=== PATIENT | female | born 1955 | race Asian ===

== ENCOUNTER 2020-03-05 15:11 | Emergency (ER) | payer MEDICARE, MEDICAID ==
[~2020-03-05] VITALS: Ht 165.1 cm; Wt 79.4 kg
[~2020-03-05 15:11] MED LIST: ASPIR 8181 MG ORAL; ATORVASTATIN CA10 MG ORAL; CATAPRES0.1 MG ORAL; COREG25 MG ORAL; COZAAR50 MG ORAL; DIPHENHYDRAMINE25 M1 ORAL; HYDRALAZINE HCL50 MG ORAL; ISOSORBIDE DINI30 MG ORAL; LAMICTAL25 MG ORAL; LEVEMIR FL100 UNIT/1 SUBQ; LEVEMIR100 UNIT/1 SUBQ; NOVOLOG100 UNIT/3 SUBQ; NOVOLOG100 UNITS1 SUBQ; RESTORIL15 MG ORAL; SEROQUEL200 MG ORAL; TOPAMAX25 MG ORAL; TRADJENTA5 MG PO
[2020-03-05 15:29] VITALS: BP 152/72
--- NOTE | 2020-03-05 15:30 | NUR ---
ED Nurse Note: Pt was brought in by [facility] from [facility] d/t R lower leg swelling and pain that has been going on for 2 months and recently had worsen today. Pt is AOx2-3, able to answer simple questions and verbalize her needs, pt denies any pain as of now. Pt's a Full Code. Per EMS, pt used to be AOx4 and regularly ambulates with minimum assistance. Pt denies any recent trauma nor injury. Pt was placed on bed, side rails up for safety; bed on lowest position.
--- NOTE | 2020-03-05 15:36 | NUR ---
ED Nurse Note: ERMD at bedside.
[2020-03-05] MEDS ORDERED: Acetaminophen 500mg (ES) tab ORAL ONE (15:45)
--- NOTE | 2020-03-05 15:45 | NUR ---
ED Nurse Note: x-ray at bedside.
--- NOTE | 2020-03-05 15:54 | NUR ---
ED Nurse Note: US tech at bedside.
--- NOTE | 2020-03-05 16:21 | Diagnostic Imaging Report ---
EXAM: XR Right Ankle Complete, 3 or More Views CLINICAL HISTORY: PAIN TECHNIQUE: Frontal, lateral and oblique views of the right ankle. COMPARISON: No relevant prior studies available. FINDINGS: Bones/joints: Minimally displaced lateral malleolus fracture. Osteopenia. Soft tissues: Lateral soft tissue edema. No radiopaque foreign body. IMPRESSION: Minimally displaced lateral malleolus fracture with overlying soft tissue edema.
--- NOTE | 2020-03-05 16:22 | Diagnostic Imaging Report ---
EXAM: XR Right Foot Complete, 3 or More Views CLINICAL HISTORY: PAIN TECHNIQUE: Frontal, lateral and oblique views of the right foot. COMPARISON: No relevant prior studies available. FINDINGS: Bones/joints: No acute fracture or malalignment. Osteopenia. Plantar calcaneal osteophyte. Soft tissues: No significant abnormality. No radiopaque foreign body. IMPRESSION: No acute fractures in the right foot.
--- NOTE | 2020-03-05 16:25 | Diagnostic Imaging Report ---
EXAM: US Duplex Right Lower Extremity Veins CLINICAL HISTORY: PAIN TECHNIQUE: Real-time duplex ultrasound scan of the right lower extremity veins integrating B-mode two-dimensional vascular structure, Doppler spectral analysis, color flow Doppler imaging and compression. COMPARISON: No relevant prior studies available. FINDINGS: Deep veins: Unremarkable as visualized. Normal compression and normal response to augmentation. Superficial veins: Unremarkable as visualized. Soft tissues: No acute findings. IMPRESSION: No DVT.
--- NOTE | 2020-03-05 16:46 | Emergency Room Report ---
History of Present Illness General Chief Complaint: Pain Source: Medical Record Present Illness HPI 64-year-old female here with several weeks of right ankle pain and foot pain. Patient says that she does not recall any trauma to the area but says that it intermittently swells up. She says "the nurses keep pushing on my ankle and it really hurts." Does not recall any falls. No headaches, vision changes, head injury, neck pain, focal numbness or weakness, recent surgeries, hormone use, history of blood clots. Patient does been much of her day in bed but says that she is ambulatory with assistance. Allergies: Coded Allergies: ARIPIPRAZOLE (Unverified Allergy, Unknown, 02/06/15) METFORMIN (Unverified Allergy, Unknown, 09/21/14) COVID-19 Screening Contact w/high risk pt: No Experienced COVID-19 symptoms?: No COVID-19 Testing performed HEALTHCARE RECRUITER: Yes COVID-19 Screening: Negative COVID-19 COVID-19 Testing Source: 02/19/20 Nursing Documentation-[facility] Past Medical History: No History, Except For Hx Cardiac Problems: Yes - HYPERCHOLESTEROLEMIA Hx Hypertension: Yes Hx COPD: Yes Hx Diabetes: Yes Hx Cancer: No Hx Gastrointestinal Problems: No Hx Neurological Problems: Yes - BIPOLAR, SCHIZOPHRENIA Hx Seizures: Yes Review of Systems All Other Systems: negative except mentioned in HPI Physical Exam Vital Signs Date Time Temp Pulse Resp B/P (MAP) Pulse Ox O2 Delivery O2 Flow Rate FiO2 03/05/20 15:18 97.2 88 18 152/72 (98) 95 Room Air Sp02 EP Interpretation: reviewed, normal General Appearance: no apparent distress, alert, non-toxic Head: normocephalic, atraumatic Eyes: bilateral eye normal inspection, bilateral eye PERRL ENT: hearing grossly normal, normal pharynx, no angioedema, normal voice Neck: full range of motion, supple/symm/no masses Respiratory: chest non-tender, lungs clear, normal breath sounds, speaking full sentences Cardiovascular #1: regular rate, rhythm, no edema Cardiovascular #2: 2+ carotid (R), 2+ carotid (L), 2+ radial (R), 2+ radial (L), 2+ dorsalis pedis (R), 2+ dorsalis pedis (L) Gastrointestinal: normal bowel sounds, non tender, soft, non-distended, no guarding, no rebound Rectal: deferred Genitourinary: normal inspection, no CVA tenderness Musculoskeletal: back normal, normal range of motion, calf tenderness, gait/station normal, other - Tenderness on palpation of the right lateral malleolus with small amount of overlying ecchymosis. PT and DP pulses intact. No calf tenderness. Negative Homans' sign. No leg swelling Neurologic: alert, motor strength/tone normal, oriented x3, sensory intact, responsive, speech normal Psychiatric: judgement/insight normal, memory normal, mood/affect normal, no suicidal/homicidal ideation Reflexes: 3+ bicep (R), 3+ bicep (L), 3+ tricep (R), 3+ tricep (L), 3+ knee (R), 3+ knee (L) Lymphatic: no adenopathy Medical Decision Making Diagnostic Impression: Primary Impression: Lateral malleolar fracture ER Course X-ray right foot: No acute fractures in the right foot X-ray right ankle: Minimally displaced lateral malleolus fracture with overlying soft tissue edema Ultrasound duplex right lower extremity venous: No DVT Splint: Short-leg posterior mold splint placed on right lower extremity. Patient neurovascularly intact before and after splint was placed 64-year-old female coming in with right ankle pain. Patient does not recall any falls or other acute injuries, but she says that she "rolled" her ankle several times in the past. Was given Tylenol with good resolution of her pain in the emergency department. X-ray showed a small nondisplaced right lateral malleolus fracture the right ankle. Patient unaware of whether this is new or old. She is placed in a posterior mold splint and was given information to follow-up with orthopedic surgery. She was neurovascularly intact before and after the splint was placed as described above. Patient overall has poor conditioning and will not be able to use crutches. Was told that she will likely need a wheelchair at the [facility] while the fracture heals and until cleared by orthopedic surgery. Discharged in stable condition. Last Vital Signs Date Time Temp Pulse Resp B/P (MAP) Pulse Ox O2 Delivery O2 Flow Rate FiO2 03/05/20 15:29 97.2 18 152/72 95 Room Air 03/05/20 15:18 88 Disposition: HOME, SELF-CARE Condition: Stable Referrals: RiversReji kemp MD, Evan M.D. Mar 05, 2020 16:46
--- NOTE | 2020-03-05 17:01 | NUR ---
Short Leg Posterior Splint has been applied to pts left lower ext. and PMS has been reassed with no complications
--- NOTE | 2020-03-05 17:30 | NUR ---
ED Nurse Note: report for transfer back to facility was given to Geena GUTIERREZ stonework supervisor in [facility].
[2020-03-05 18:31] VITALS: BP 145/69
--- NOTE | 2020-03-05 18:31 | NUR ---
ER DISCHARGE NOTE: Patient is cleared to be discharged per ERMD, pt is aox3, on room air, with stable vital signs. pt was given dc and prescription instructions, handed to ambulance personnel, pt id band removed. pt was picked up by [facility] on stable condition; all belongings was sent to pt
== END 2020-03-05 18:31 | disposition home or self-care (01) ==
LOC: EDBD 15:11 → EMR 15:50
DX: S82.61XA Displaced fracture of lateral malleolus of right fibula, initial encounter for closed fracture (principal); M85.871 Other specified disorders of bone density and structure, right ankle and foot; Z88.8 Allergy status to other drugs, medicaments and biological substances; E78.00 Pure hypercholesterolemia, unspecified; I10 Essential (primary) hypertension; J44.9 Chronic obstructive pulmonary disease, unspecified; E11.9 Type 2 diabetes mellitus without complications; F31.9 Bipolar disorder, unspecified; F20.9 Schizophrenia, unspecified; G40.909 Epilepsy, unspecified, not intractable, without status epilepticus
CPT/HCPCS: 29515; 93971; 99284